=== PATIENT | female | born 1970 | race Caucasian/White ===

== ENCOUNTER 2016-08-22 15:22 | Observation (INO) | payer MEDICAID ==
[2016-08-22 15:34] VITALS: RESP 16
--- NOTE | 2016-08-22 15:36 | CPEKG ---
Heart Rate: 78 RR Interval: 769 P-R Interval: 164 QRSD Interval: 86 QT Interval: 372 QTC Interval: 424 P [place]: 35 QRS [place]: 51 T Wave [place]: 26 EKG Severity - NORMAL ECG - EKG Impression: SINUS RHYTHM Electronically Signed By: Lynn Cheung 22-Aug-2016 16:37:49
[2016-08-22] MEDS ORDERED: ASPIRIN 81 MG CHEWABLE TAB PO ONE (15:40)
[2016-08-22 16:04] LABS: % IMMATURE GRANULYOCYTES 0.3 % (0.0-1.1); ABSOLUTE IMMATURE GRANULOCYTES 0.02 10^3/uL (0.00-0.10); ADD DIFF? NO; ADD MORPH? NO; ADD SCAN? NO; ATYPICAL LYMPHOCYTE FLAG 0 (0-99); FRAGMENT RBC FLAG 0 (0-99); HEMATOCRIT 36.8 % (38.0-47.0); HEMOGLOBIN 12.8 g/dL (12.6-16.3); LEFT SHIFT FLG 0 (0-99); LIPEMIA HEMOLYSIS FLAG 90 (0-99); MEAN CELL HEMOGLOBIN 31.1 pg (27.9-34.1); MEAN CELL HEMOGLOBIN CONCENTR. 34.8 g/dL (32.4-36.7); MEAN CELL VOLUME 89.5 fL (81.5-99.8); MEAN PLATELET VOLUME 9.9 fL (8.7-11.7); PLATELET CLUMPS FLAG 0 (0-99); PLATELET COUNT 188 10^3/uL (150-400); RED BLOOD CELL COUNT 4.11 10^6/uL (4.18-5.33)
[2016-08-22 16:15] LABS: INR 0.99 (0.83-1.16); PROTIME(PATIENT) 12.8 SEC (12.0-15.0)
[2016-08-22 16:16] LABS: APTT 30.5 SEC (23.0-38.0)
[2016-08-22 16:18] LABS: ALANINE AMINOTRANSFERASE 36 IU/L (9-52); ALBUMIN 3.8 g/dL (3.5-5.0); ALKALINE PHOSPHATASE 66 IU/L (38-126); ANION GAP 8 mEq/L (8-16); ASPARTATE AMINOTRANSFERASE 26 IU/L (14-46); BILIRUBIN,TOTAL 1.6 mg/dL (0.1-1.4); BILIRUBIN-CONJUGATED 0.2 mg/dL (0.0-0.5); BILIRUBIN-UNCONJUGATED 1.4 mg/dL (0.0-1.1); CALCIUM 8.9 mg/dL (8.5-10.4); CARBON DIOXIDE 23 mEq/l (22-31); CHLORIDE 104 mEq/L (97-110); CREATININE 0.5 mg/dL (0.6-1.0); GLOMERULAR FILTRATION RATE > 60; GLUCOSE 106 mg/dL (70-100); POTASSIUM 4.1 mEq/L (3.5-5.2); SODIUM 135 mEq/L (134-144); TOTAL PROTEIN 6.5 g/dL (6.3-8.2)
--- NOTE | 2016-08-22 16:35 | UCPHY ---
H & P Time Seen by Provider: 08/22/16 15:40 Patient Type: Established HPI/ROS: HPI Chest pain, shortness of breath. 46-year-old female by private vehicle. She complains of chest pain which she describes as a dull ache with associated shortness of breath onset last night while hiking. Reports that it is worse with exertion and then dissipates when she stops physical exertion. She reports that she has had this on and off since January of last year. She was seen at [facility] Emergency Department for this problem after she had an episode of this pain after jumping into a cold -like. She was never admitted she was sent home from the emergency department. She reports that her pain last night was more severe. She reports that she had some pitting edema in her ankles this morning and this afternoon that she has had a dull ache and tightness sensation in her mid chest since this morning. This is what prompted her to come to the emergency department for evaluation. ROS: Constitutional: No fever, no chills. No weakness. Eyes: No discharge. No changes in vision. ENT: No sore throat. No nasal congestion or rhinorrhea. Respiratory: No cough. As above. Cardiac: As above, no palpitations. Gastrointestinal: No abdominal pain, no vomiting, no diarrhea. Genitourinary: No hematuria. No dysuria or increased frequency with urination. Musculoskeletal: No back pain. No neck pain. No myalgias or arthralgias. Skin: No rashes. Neurological: No headache. No focal weakness or altered sensation. Past medical history: She denies any significant past medical history. She does not have any cardiac risk factors. No concerning family history for coronary artery disease. Social history: Nonsmoker. No IV drugs or street drugs. Here by herself. Physical Exam: General Appearance: Alert, no distress. This patient is responding to questions appropriately and in full sentences. This patient appears well- hydrated and well-nourished. Eyes: Pupils equal and round no pallor or injection. No lid edema, erythema or injection. Respiratory: There are no retractions, lungs are clear to auscultation with good air movement bilaterally. Cardiovascular: Regular rate and rhythm. No murmur. Gastrointestinal: Abdomen is soft and nontender, no masses, bowel sounds normal. No focal tenderness at McBurney's point. No Green sign. Neurological: Motor sensory function is grossly intact. Cranial nerves are normal. Gait is normal. Skin: Warm and dry, no rashes. Musculoskeletal: Neck is supple and nontender. Extremities are symmetrical. All joints range without pain or impingement. Psychiatric: No agitation. No depression. Database: EKG: EKG time is 30 4:00 p.m.; EKG shows a narrow complex normal sinus rhythm with a ventricular rate of 78. The UT, QRS, QT intervals are within normal limits. There are no ST-T wave changes indicative of ischemic or injury pattern. No evidence of right heart strain. Interpreted by me. Imaging: Chest x-ray AP portable; the cardiac mediastinal silhouette is unremarkable. No evidence of infiltrate or pneumothorax. No acute cardiopulmonary disease process noted. Interpreted by me. Procedures: Emergency department course: IV placed. She was placed on a monitor. She was given 324 mg of chewed aspirin. EKG and chest x-ray performed. This has been an ongoing problem for her. Chest pain worse with exertion. I discussed admission. She consents. 5:50 p.m., spoke with hospitalist, Dr. Kip Alvarez. Case discussed in detail with him. He accepts the patient for admission to the [facility]. 6:00 p.m., patient re-evaluated. She is resting comfortably at this time. Results of all of her diagnostic tests were discussed with her. Plan for admission to chest pain observation unit at [facility] reviewed. Her will take her over to the emergency department for admission at [facility]. All of their questions were answered. She was discharged with her in good condition. Differential Diagnosis: The differential diagnosis on this patient includes but is not limited to pleurisy, pulmonary embolism, acute coronary syndrome, congestive heart failure , pneumothorax. This represents a partial list of diagnoses considered. These considerations are based on history, physical exam, past history, reassessment and diagnostic testing. Smoking Status: Never smoked Constitutional: Initial Vital Signs Temperature (C) 36.8 C 08/22/16 15:32 Heart Rate 85 08/22/16 15:32 Respiratory Rate 16 08/22/16 15:32 Blood Pressure 106/76 08/22/16 15:32 O2 Sat (%) 98 08/22/16 15:32 O2 Delivery Mode Room Air Allergies/Adverse Reactions: No Known Allergies Allergy (Verified 08/22/16 15:34) Home Medications: Medication Instructions Recorded Miscellaneous Medical Supply [NO 1 ea MISC AD 12/28/11 HOME MEDS] Medical Decision Making - Data Points Laboratory Results: Laboratory Results 08/22/16 15:55 08/22/16 15:55 08/22/16 08/22/16 08/22/16 Unknown 15:55 15:55 WBC RBC Hgb Hct MCV MCH MCHC RDW Plt Count MPV Neut % (Auto) Lymph % (Auto) Mccracken % (Auto) Eos % (Auto) Baso % (Auto) Nucleat RBC Rel Count Absolute Neuts (auto) Absolute Lymphs (auto) Absolute Monos (auto) Absolute Eos (auto) Absolute Basos (auto) Absolute Nucleated RBC Immature Gran % Immature Gran # PT 12.8 SEC SEC (12.0-15.0) INR 0.99 (0.83-1.16) APTT 30.5 SEC SEC (23.0-38.0) D-Dimer 0.27 ug/mLFEU ug/mLFEU (0.00-0.50) Sodium 135 mEq/L mEq/L (134-144) Potassium 4.1 mEq/L mEq/L (3.5-5.2) Chloride 104 mEq/L mEq/L (97-110) Carbon Dioxide 23 mEq/l mEq/l (22-31) Anion Gap 8 mEq/L mEq/L (8-16) BUN 13 mg/dL mg/dL (7-23) Creatinine 0.5 mg/dL L mg/dL (0.6-1.0) Estimated GFR > 60 Glucose 106 mg/dL H mg/dL (70-100) Calcium 8.9 mg/dL mg/dL (8.5-10.4) Total Bilirubin 1.6 mg/dL H mg/dL (0.1-1.4) Conjugated Bilirubin 0.2 mg/dL mg/dL (0.0-0.5) Unconjugated Bilirubin 1.4 mg/dL H mg/dL (0.0-1.1) AST 26 IU/L IU/L (14-46) ALT 36 IU/L IU/L (9-52) Alkaline Phosphatase 66 IU/L IU/L (38-126) Troponin I < 0.012 ng/mL ng/mL (0-0.034) NT-Pro-B Natriuret Pep 112 pg/mL pg/mL (0-125) Total Protein 6.5 g/dL g/dL (6.3-8.2) Albumin 3.8 g/dL g/dL (3.5-5.0) Lipase 139.0 IU/L IU/L (23-300) 08/22/16 15:55 WBC 6.65 10^3/uL 10^3/uL (3.80-9.50) RBC 4.11 10^6/uL L 10^6/uL (4.18-5.33) Hgb 12.8 g/dL g/dL (12.6-16.3) Hct 36.8 % L % (38.0-47.0) MCV 89.5 fL fL (81.5-99.8) MCH 31.1 pg pg (27.9-34.1) MCHC 34.8 g/dL g/dL (32.4-36.7) RDW 12.0 % % (11.5-15.2) Plt Count 188 10^3/uL 10^3/uL (150-400) MPV 9.9 fL fL (8.7-11.7) Neut % (Auto) 64.2 % % (39.3-74.2) Lymph % (Auto) 25.7 % % (15.0-45.0) Mccracken % (Auto) 8.1 % % (4.5-13.0) Eos % (Auto) 1.1 % % (0.6-7.6) Baso % (Auto) 0.6 % % (0.3-1.7) Nucleat RBC Rel Count 0.0 % % (0.0-0.2) Absolute Neuts (auto) 4.27 10^3/uL 10^3/uL (1.70-6.50) Absolute Lymphs (auto) 1.71 10^3/uL 10^3/uL (1.00-3.00) Absolute Monos (auto) 0.54 10^3/uL 10^3/uL (0.30-0.80) Absolute Eos (auto) 0.07 10^3/uL 10^3/uL (0.03-0.40) Absolute Basos (auto) 0.04 10^3/uL 10^3/uL (0.02-0.10) Absolute Nucleated RBC 0.00 10^3/uL 10^3/uL (0-0.01) Immature Gran % 0.3 % % (0.0-1.1) Immature Gran # 0.02 10^3/uL 10^3/uL (0.00-0.10) PT INR APTT D-Dimer Sodium Potassium Chloride Carbon Dioxide Anion Gap BUN Creatinine Estimated GFR Glucose Calcium Total Bilirubin Conjugated Bilirubin Unconjugated Bilirubin AST ALT Alkaline Phosphatase Troponin I NT-Pro-B Natriuret Pep Total Protein Albumin Lipase Medications Given: Discontinued Medications Aspirin (Aspirin) 324 mg PO EDNOW ONE Stop: 08/22/16 15:41 Last Admin: 08/22/16 16:10 Dose: 324 mg Departure - Departure Disposition: [facility] Inpatient Acute Clinical Impression: Chest pain Referrals: ASHANTI ADLER,. [Primary Care Provider] - As per Instructions - PQRS PQRS Measurement: Not applicable.
[2016-08-22] MEDS ORDERED: ACETAMINOPHEN 325 MG TAB PO PRN (20:39)
--- NOTE | 2016-08-22 21:15 | GHP ---
[f rep st] HISTORY AND PHYSICAL DATE OF ADMISSION: 08/22/2016 CHIEF COMPLAINT: Chest pain. HISTORY OF PRESENT ILLNESS: This is a 46-year-old female, who has had about 2 months of chest tight ness associated with exertion. This has been happening somewhat intermittently. She gives the exam ple of hiking up, gets chest pain, stops, and her chest pain resolved. Does not radiate, not really associated with any shortness of breath. No associated nausea, vomiting. She notes that she has s ome mild lower extremity edema which she just noticed today or yesterday. PAST MEDICAL/SURGICAL HISTORY: None. MEDICATIONS: She takes some supplements. ALLERGIES: No known drug allergies. FAMILY HISTORY: She had 2 grandparents who had heart disease in their 50s and 80s. SOCIAL HISTORY: She does not drink. She never smoked. REVIEW OF SYSTEMS: 10-point review of systems is conducted and is negative except per HPI. PHYSICAL EXAM: VITAL SIGNS: Blood pressure 118/84, heart rate 76, respiration rate 16, saturating 98% on room air. Temperature 36.4. GENERAL: The patient is a pleasant female, sitting comfortably, in no acute distress. HEENT: Shows her to be normocephalic, atraumatic. CARDIOVASCULAR: Regular rate and rhythm. No murmurs, rubs, or gallops. She has trace bilateral lower extremity edema. PU LMONARY: Shows her to be in no respiratory distress. Her lungs are clear to auscultation bilateral ly. ABDOMEN: Soft, nontender, nondistended. SKIN: Shows no rash. : Shows no [place]. NEUROLOG IC: Shows her to be alert and oriented x3. She is moving all extremities. PSYCHIATRIC: Exam show s normal mood and affect. LABS: BNP and troponin are negative. CBC is normal. D-dimer is negative. Total bilirubin is 1.6. DATA: Chest x-ray, which I personally viewed and interpreted, shows nothing acute. EKG shows sinus rhythm with no acute ischemic changes. IMPRESSION/PLAN: 46-year-old female presents with chest pain. 1. Chest pain: Description of the pain is concerning for cardiovascular, though she has no other r isk factors. She is chest pain free currently. I think that is reasonable to give her a treadmill EKG tomorrow. She has lower extremity edema, I will get her an echocardiogram as well. Negative D- dimer makes clot very unlikely. I do not suspect aortic pathology or pericarditis given her symptom s in other clinical findings. 2. Suspected Gilbert's disease. /[id number]/MODL
[2016-08-23] MEDS ORDERED: VITAMIN B COMPLEX 1 EA CAP/TAB PO SCH (09:00)
[2016-08-23] MEDS ORDERED: ASCORBIC ACID 500 MG TAB PO SCH (09:00)
[2016-08-23] MEDS ORDERED: OMEGA-3 FATTY ACIDS 1,000 MG CAP PO SCH (09:00)
[2016-08-23] MEDS ORDERED: NON-FORMULARY NEW DRUG (Vitamin B Complex [Super B-50 Complex] 1 EACH) PO SCH (09:00)
--- NOTE | 2016-08-23 10:02 | CPEKG ---
Heart Rate: 70 RR Interval: 857 P-R Interval: 176 QRSD Interval: 76 QT Interval: 384 QTC Interval: 415 P [place]: 40 QRS [place]: 68 T Wave [place]: 36 EKG Severity - NORMAL ECG - EKG Impression: SINUS RHYTHM Electronically Signed By: Edgardo Cramer 23-Aug-2016 18:23:33
[2016-08-23 10:58] VITALS: BP 119/69; PULSE 52; TEMP 98.1; O2SAT 100
--- NOTE | 2016-08-23 12:06 | ECHO ---
[id number] + + [address] : : [place] [address] : : [phone] + Adult Echocardiographic Report + --------+ :Name: SCOTT BRYAN LStudy Date: 08/23/2016 10:10 AM : : Hospital Admission Number: [id number] Locat ion: 142: :: 1970 Gender: Female Height: 63 in : :Age: 46 yrs Race: WH Weight: 112 l b : :Reason For Study: Eval LV Fx : : BSA: 1.5 mete rs2 : :History: Chest Pain : + --------+ MMode/2D Measurements \T\ Calculations IVSd: 0.81 cm LVIDd: 4.1 cm FS: 43.1 % Ao root diam: 3.0 cm LVPWd: 0.83 cm LVIDs: 2.4 cm EDV(Teich): 76.0 ml ACS: 1.7 cm ESV(Teich): 19.2 ml EF(Teich): 74.7 % Normal Measurement Values: + + :LVIDd (3.5-5.7cm) IVSd (0.6-1.1cm) LVPWd (0.6-1.1cm) Aortic Root (2.0-3.7cm)Left Atrium (1.5-4.0cm): :LV Vol(d) (76-115ml) LV Vol(s) (29-48ml) Ejec Fraction (50-65%)PV Matteo (0.6- 1.2m/s) TV Matteo (0.4-1.0m/s) : :MV E Matteo (0.8-1.0m/s)MV A Matteo (0.3-1.0m/s)LVOT Matteo (0.7-1.2m/s) Asc Ao Matteo ( 0.9-1.8m/s) : + + Doppler Measurements \T\ Calculations MV E max matteo: Ao V2 max: LV V1 max: PA V2 max: 102.7 cm/sec 146.6 cm/sec 105.6 cm/sec 80.1 cm/sec MV A max matteo: Ao max PG: LV V1 max PG: PA max P.6 cm/sec 8.6 mmHg 4.5 mmHg 2.6 mmHg MV E/A: 1.5 TR max matteo: 232.1 cm/sec TR max P.6 mmHg RAP systole: 5.0 mmHg RVSP(TR): 26.6 mmHg Left Ventricle The left ventricle is normal in size and function. There is normal left ventricular wall thickness. The left ventricular ejection fraction is normal. Ejection Fraction = 75%. The left ventricular wall motion is normal. Right Ventricle The right ventricle is normal in size and function. There is normal right ventricular wall thickness. Atria The left atrial size is normal. Right atrial size is normal. Mitral Valve The mitral valve is normal in structure and function. There is no mitral valve stenosis. There is no mitral regurgitation noted. Tricuspid Valve There is trace tricuspid regurgitation. Right ventricular systolic pressure is normal. Aortic Valve The aortic valve is normal in structure and function. There is no aortic stenosis. There is no aortic insufficiency. Pulmonic Valve The pulmonic valve is normal in structure and function. There is no pulmonic valvular regurgitation. Great Vessels The aortic root is normal size. Pericardium/Pleural There is no pericardial effusion. Conclusion A complete two-dimensional transthoracic echocardiogram was performed (2D, M-mode, Doppler and color flow Doppler). The left ventricle is normal in size and function. The left ventricular ejection fraction is normal. Ejection Fraction = 75%. The left ventricular wall motion is normal. The right ventricle is normal in size and function. The left atrial size is normal. The mitral valve is normal in structure and function. There is trace tricuspid regurgitation. Right ventricular systolic pressure is normal. The aortic valve is normal in structure and function. There is no pericardial effusion. Final Reading Physician: Dr Leona Arrington electronically signed on 08/23/2016 12:04 PM Ordering Physician: Quinten Alvarez Performed By: Brent Perrin, MANUELCS
--- NOTE | 2016-08-23 13:07 | CPIP ---
[f rep st] INVASIVE CARDIAC PROCEDURE DATE OF PROCEDURE: 08/23/2016 PROCEDURE: Stress test. INDICATIONS: Chest pain. COMPLICATIONS: None. DESCRIPTION OF PROCEDURE: The patient was established to cardiac monitor technician. She underwent stress krystal ting via standard [place] protocol. Frequent blood pressure and oximetry monitoring were recorded. FINDINGS: Baseline EKG shows sinus rhythm with single PVC. With stress there were no ST changes. Occasional PVCs. Baseline blood pressure 92/68, with oxygen saturation of 95%, and heart rate of 78. Peak blood pres sure 130/60 with a heart rate of 151. This represents 87% age predicted maximum heart rate. Peak h eart rate was 153. The patient did experience 4/10 chest tightness, close to peak exercise that abated within 2 minutes of recovery. CONCLUSIONS: Stress EKG with normal hemodynamic response to exercise, good exercise tolerance, and no EKG changes. However, the patient did have exertional chest tightness. Consider CT coronary ang iogram. Results discussed with Dr. Mcghee. Copy requested to: Joseph /[id number]/MODL
--- NOTE | 2016-08-23 14:21 | PDDCSUM ---
Discharge Summary Discharge Summary: DISCHARGE SUMMARY FOLLOW-UP ITEMS: Coronary angio CT this week DATE OF ADMISSION: 08/22/16 DATE OF DISCHARGE: 08/23/2016 DISCHARGE DIAGNOSES: 1. Acute chest pain CONSULTATIONS: None PROCEDURES / IMAGING: Exercise EKG stress test demonstrating no ST segment changes, although patient did experience chest pain during the test, echocardiogram was completely normal CHIEF COMPLAINT: Acute chest pain SUBJECTIVE: Patient denies any chest pain at present PHYSICAL EXAM ON DISCHARGE: Systolic blood pressure is 100, heart rate 70, afebrile overnight, satting well on room air, lungs are clear to auscultation bilaterally without any inspiratory crackles or expiratory wheezes, heart rhythm is regular, without any murmurs or gallops, no detectable lower extremity edema LABS ON DISCHARGE: Troponin negative x3, D-dimer negative, normal white blood cell count, normal liver panel, normal lipase HOSPITAL COURSE BY PROBLEM: 1. Acute chest pain. Most likely atypical, ruled out for acute coronary syndrome with negative troponin x3 and no evidence of obstructive coronary disease on EKG exercise stress testing. She was ruled out for pulmonary embolism with negative D-dimer. That being said, the patient did experience chest pain during her treadmill test, and Dr. Leona Arrington recommended coronary angiography CT to ensure the patient does not have an anomolous coronary artery or small dissection. Given that this testing modalities available on weekends and patient's discomfort is only provoked with exertion, it is clinically safe for the patient to have this test performed in the outpatient setting within the next 48 hours and I have advised that she not engage in exertional physical activity until she has followed up with either Dr. Arrington or her primary care provider regarding the results of said testing. In the interim, the patient will take aspirin 81 mg preoperatively. Believe that the most likely cause of her chest discomfort is either mild pleuritis in the setting of intermittent URIs in the setting of children who have had URIs versus stress related. The patient's is willing to entertain either of these etiologies as the potential cause but she has also committed to ruling out other causes with the coronary CT. DISCHARGE MEDICATIONS: Please see official discharge medication reconciliation sheet in chart , aspirin 81 mg daily DISCHARGE INSTRUCTIONS: Patient will have CT performed in the next 48 hours, she has the phone number provided to do so, she will then follow up with either Dr. Arrington or her primary care provider thereafter. TIME SPENT: Greater than 30 minutes were spent on direct patient care, as well as discharge planning and preparation.
== END 2016-08-23 15:20 | disposition home or self-care (01) ==
LOC: CED 15:22 → CEDHOLD 17:56 → F1N 19:58
PROVIDERS: ADMIT Student in an Organized Health Care Education/Training Program; ATTEND Internal Medicine
PROC: B246ZZZ Ultrasonography of Right and Left Heart (ICD-10-PCS; principal; 2016-08-23)
PROC: 4A12XM4 Monitoring of Cardiac Stress, External Approach (ICD-10-PCS; 2016-08-23)
DX: R07.9 Chest pain, unspecified (principal); R06.09 Other forms of dyspnea
CPT/HCPCS: 71010; 93005; 93017; 93306; 99213; G0378; 80048-PO; 80076-PO; 83690-PO; 83880-PO; 84484-PO; 85025-PO; 85378-PO; 85610-PO; 85730-PO; G0463-PO

== ENCOUNTER 2017-09-27 15:14 | Emergency (ER) | payer MEDICAID ==
[2017-09-27 15:28] VITALS: BP 93/70
--- NOTE | 2017-09-27 15:56 | EDPHY ---
H & P Time Seen by Provider: 09/27/17 15:36 HPI/ROS: This patient sustained a injury to her left hand at home shortly prior to arrival. She explains that she has a keyboard on the stand with the Martínez X configuration. She removed the pain that holds the standing position to lower it but for got to support the keyboard while doing so so her hand was pinched in the X portion of the stay and with immediate moderate pain. She reports slight ecchymotic discoloration since that time-approximately 1 hr prior to arrival to the 4th and 5th metacarpal region extending the 4th 5th fingers. She describes an aching discomfort with occasional throbbing pain. The intensity is 5/10 with occasional slight worsening. She has been applying ice. She has not taken any analgesics and declined analgesics here. She wants to rule out fracture. She came in by private vehicle. ROS: Neuro: No numbness or tingling. Integumentary: No lacerations or abrasions Musculoskeletal: No gross deformity. No other injuries. 5 point ROS is otherwise negative. Past Medical/Surgical History: Otherwise healthy Smoking Status: Never smoked Physical Exam: Physical Exam Vital signs are normal. General: No acute distress HEENT: Atraumatic. Eyes: Pupils equal and react to light. Extraocular motions are intact. Lungs: No respiratory distress. Cardiac: Brisk capillary refill is intact throughout. Pulses are 2+ and symmetric in the affected extremity. Skin: No rash or pallor. Extremities: Atraumatic normal except for the left hand Left hand: Patient has mild ecchymosis and tenderness to the 4th and 5th metacarpals without gross deformity or significant hematoma. There is no malrotation to the 4th and 5th fingers when viewed on end. There is no laxity at the metacarpophalangeal or phalangeal joints. There is no wrist swelling or tenderness. Neuro: Alert with no sensorimotor deficits in the affected hand. Initial differential diagnosis: Hand contusion versus fracture verses early hematoma Constitutional: Initial Vital Signs Temperature (C) 36.9 C 09/27/17 15:22 Heart Rate 74 09/27/17 15:22 Respiratory Rate 16 09/27/17 15:22 Blood Pressure 93/70 L 09/27/17 15:22 O2 Sat (%) 97 09/27/17 15:22 O2 Delivery Mode Room Air Allergies/Adverse Reactions: No Known Allergies Allergy (Verified 09/27/17 15:20) Home Medications: Medication Instructions Recorded Herbals/Supplements -Info Only 1 ea PO DAILY 08/22/16 [place]-3 Fatty Acids [Fish Oil 1000 1,000 mg PO DAILY 08/22/16 mg (*)] Vitamin B-6 09/27/17 MDM/Departure - MDM Diagnostics: Three-view hand x-ray: Evidence of old healed 2nd finger proximal phalanx fracture. No evidence of acute fractures by my interpretation ED Course/Re-evaluation: Patient is placed in Сергей wrap by our tech with my supervision. I counseled the patient regarding contusion to the hand and fingers. Advised her to use ice, ibuprofen or similar anti-inflammatory and Tylenol for discomfort as needed. She will follow up with orthopedics for any ongoing symptoms that persist beyond the next 10 days. - Depart Disposition: Home, Routine, Self-Care Clinical Impression: Contusion of hand Qualifiers: Encounter type: initial encounter Laterality: left Qualified Code(s): S60.222A - Contusion of left hand, initial encounter Condition: Good Instructions: Contusion in Adults (ED) Additional Instructions: Diagnosis: Hand contusion Plan: Ice 20 to 30 min at a time several times a day for the next few days Ibuprofen or other anti-inflammatory for choice and Tylenol as needed for discomfort Сергей wrap and elevate the hand whenever possible for the next few days as well. Follow up with orthopedic physician if you have any significant pain the persist beyond the next 10 days despite treatment plan. Return emergency department for any significant worsening despite treatment plan Referrals: MANISH BURRELL [Other] - As per Instructions Kp Wilson MD [Medical Doctor] - As per Instructions
== END 2017-09-27 16:12 | disposition home or self-care (01) ==
LOC: CED 15:14
DX: S60.222A Contusion of left hand, initial encounter (principal); X58.XXXA Exposure to other specified factors, initial encounter; Y92.009 Unspecified place in unspecified non-institutional (private) residence as the place of occurrence of the external cause
CPT/HCPCS: 73130-PO

== ENCOUNTER 2018-12-02 20:59 | Emergency (ER) | payer MEDICAID | END 2018-12-02 22:00 | disposition home or self-care (01) | LOC: CED 20:59 ==